=== PATIENT | female | born 1965 | race Caucasian/White ===

== ENCOUNTER 2016-05-29 13:38 | Inpatient (IN) | payer MEDICARE, OTHER ==
[~2016-05-29 13:38] MED LIST: ABILIFY10 M1 PO; BUSPIRONE HCL30 M1 PO; CHANTIX0.5 MG/TAB PO; COZAAR25 M1 PO; DEPAKOTE500 M1 PO; FIORICET 50-301 EAC1 PO; KLONOPIN0.5 M1 PO; LASIX40 M1 PO; LEVOTHYROXINE100 MC1 PO; LEXAPRO20 M2 PO; LYRICA150 MG/CAP PO; MELOXICAM15 M1 PO; METOPROLOL SUCC50 M1 PO; NORVASC2.5 M1 PO; OMEPRAZOLE20 M3 PO; PERCOCET 7.5-31 EAC1 PO; POTASSIUM CHLO10 ME2 PO; PRAVASTATIN SOD80 M1 PO; PROAIR HFA8.5 GM INH; ULTRAM50 M1 PO; VITAMIN D3400 UNI5 PO; ZOFRAN ODT8 MG PO; ZOLPIDEM TART12.5 M2 PO
[2016-05-29 16:11] LABS: ANION GAP 12 mmol/L (0-20); BLOOD UREA NITROGEN 14 mg/dl (6-24); CALCIUM 8.4 mg/dl (8.5-10.5); CARBON DIOXIDE-VENOUS 28 mmol/L (22-32); CHLORIDE 110 mmol/l (96-110); CREATININE 0.56 mg/dl (0.50-1.10); GLUCOSE 131 mg/dL (70-110); SODIUM 146 mmol/L (135-145); eGFR VALUE FOR BLACK >90 mL/Min
[2016-05-30 10:26] LABS: URINE APPEARANCE CLEAR; URINE BILIRUBIN NEGATIVE (NEG); URINE BLOOD NEGATIVE (NEG); URINE COLOR YELLOW; URINE GLUCOSE (UA) NEGATIVE (NEG); URINE KETONE NEGATIVE (NEG); URINE LEUKOCYTE ESTERASE NEGATIVE (NEG); URINE NITRITE NEGATIVE (NEG); URINE PROTEIN NEGATIVE (NEG)
[2016-05-31 09:22] LABS: ANION GAP 15 mmol/L (0-20); BLOOD UREA NITROGEN 9 mg/dl (6-24); CALCIUM 7.8 mg/dl (8.5-10.5); CARBON DIOXIDE-VENOUS 26 mmol/L (22-32); CHLORIDE 104 mmol/l (96-110); CREATININE 0.66 mg/dl (0.50-1.10); GLUCOSE 105 mg/dL (70-110); SODIUM 141 mmol/L (135-145); eGFR VALUE FOR BLACK >90 mL/Min
[2016-05-31 12:11] LABS: URINE BILIRUBIN NEGATIVE (NEG); URINE BLOOD NEGATIVE (NEG); URINE GLUCOSE (UA) NEGATIVE (NEG); URINE KETONE NEGATIVE (NEG); URINE LEUKOCYTE ESTERASE NEGATIVE (NEG); URINE NITRITE NEGATIVE (NEG); URINE PROTEIN NEGATIVE (NEG); URINE SPECIFIC GRAVITY 1.005 (1.003-1.030)
[2016-05-31 12:13] LABS: URINE APPEARANCE CLEAR; URINE COLOR YELLOW
[2016-05-31 14:03] LABS: BASO % 0.1 % (0-2); EOS % 0.1 % (0-7); HCT-HEMATOCRIT 29.1 % (34.0-49.0); HGB-HEMOGLOBIN 9.4 gm/dl (12.0-15.5); IMMATURE GRANULOCYTES ABSOLUTE 0.05 tho/cmm (0-0.03); IMMATURE GRANULOCYTES PERCENT 0.3 % (0-0.3); LYMPH % 17.8 % (20-45); LYMPH ABSOLUTE COUNT 2.8 tho/cmm (0.8-4.5); MCH (MEAN CORPUSCULAR HGB) 31.5 pg (28.0-32.0); MCHC MEAN CORPUSCULAR HGB CONC 32.3 % (32.0-36.0); MCV (MEAN CELL VOLUME) 97.7 fl (82.0-96.0); MEAN PLATELET VOLUME 10.5 cmc (9.4-12.4); MONOCYTE ABSOLUTE COUNT 1.6 tho/cmm (0.0-1.2); NEUTROPHIL ABSOLUTE COUNT 11.4 tho/cmm (1.6-8.0); NEUTROPHIL-AUTOMATED 11.4 tho/cmm (1.6-8.0); NEUTROPHILS % 71.7 % (40-80); PLATELET COUNT 261 tho/cmm (150-450); RED BLOOD COUNT 2.98 mil/cmm (4.00-5.20); RED CELL DISTRIBUTION WIDTH 15.4 % (12.4-16.4); WHITE BLOOD COUNT 15.9 tho/cmm (4.0-10.0)
[2016-05-31 14:18] LABS: ANION GAP 11 mmol/L (0-20); BLOOD UREA NITROGEN 9 mg/dl (6-24); CARBON DIOXIDE-VENOUS 28 mmol/L (22-32); CHLORIDE 104 mmol/l (96-110); CREATININE 0.71 mg/dl (0.50-1.10); GLUCOSE 107 mg/dL (70-110); SODIUM 139 mmol/L (135-145); eGFR VALUE FOR BLACK >90 mL/Min
[2016-05-31 15:31] LABS: PROCALCITONIN 0.55 ng/ml (0.05-0.09)
[2016-05-31 19:28] LABS: ALB/GLOB RATIO 0.6 (0.8-2.0); ALBUMIN 2.2 g/dl (3.5-5.0); ALKALINE PHOSPHATASE 101 U/L (33-138); ALT/SGPT 20 U/L (12-78); ANION GAP 12 mmol/L (0-20); AST/SGOT 36 U/L (10-40); BILIRUBIN,TOTAL 0.9 mg/dl (0-1.5); BLOOD UREA NITROGEN 9 mg/dl (6-24); CALCIUM 7.8 mg/dl (8.5-10.5); CARBON DIOXIDE-VENOUS 29 mmol/L (22-32); CHLORIDE 105 mmol/l (96-110); CREATININE 0.55 mg/dl (0.50-1.10); GLUCOSE 108 mg/dL (70-110); SODIUM 142 mmol/L (135-145); eGFR VALUE FOR BLACK >90 mL/Min
[2016-06-02 06:14] LABS: BASO % 0.1 % (0-2); EOS % 0.3 % (0-7); EOSINOPHIL ABSOLUTE COUNT 0.1 tho/cmm (0.0-0.7); HGB-HEMOGLOBIN 7.5 gm/dl (12.0-15.5); IMMATURE GRANULOCYTES ABSOLUTE 0.09 tho/cmm (0-0.03); IMMATURE GRANULOCYTES PERCENT 0.4 % (0-0.3); LYMPH % 9.1 % (20-45); LYMPH ABSOLUTE COUNT 1.9 tho/cmm (0.8-4.5); MCH (MEAN CORPUSCULAR HGB) 31.1 pg (28.0-32.0); MCHC MEAN CORPUSCULAR HGB CONC 32.3 % (32.0-36.0); MCV (MEAN CELL VOLUME) 96.3 fl (82.0-96.0); MEAN PLATELET VOLUME 10.6 cmc (9.4-12.4); MONO % 6.7 % (0-12); MONOCYTE ABSOLUTE COUNT 1.4 tho/cmm (0.0-1.2); NEUTROPHIL ABSOLUTE COUNT 17.7 tho/cmm (1.6-8.0); NEUTROPHIL-AUTOMATED 17.7 tho/cmm (1.6-8.0); NEUTROPHILS % 83.4 % (40-80); PLATELET COUNT 191 tho/cmm (150-450); RED BLOOD COUNT 2.41 mil/cmm (4.00-5.20); RED CELL DISTRIBUTION WIDTH 14.3 % (12.4-16.4); WHITE BLOOD COUNT 21.2 tho/cmm (4.0-10.0)
[2016-06-02 06:24] LABS: ANION GAP 11 mmol/L (0-20); BLOOD UREA NITROGEN 7 mg/dl (6-24); CALCIUM 7.8 mg/dl (8.5-10.5); CARBON DIOXIDE-VENOUS 27 mmol/L (22-32); CHLORIDE 102 mmol/l (96-110); CREATININE 0.48 mg/dl (0.50-1.10); GLUCOSE 106 mg/dL (70-110); POTASSIUM 3.2 mmol/L (3.7-5.1); SODIUM 137 mmol/L (135-145); eGFR VALUE FOR BLACK >90 mL/Min
[2016-06-02 06:39] LABS: HCT-HEMATOCRIT 23.2 % (34.0-49.0)
[2016-06-02 13:09] LABS: C-REACTIVE PROTEIN 33.3 mg/dl (0-0.9)
[2016-06-02 13:28] LABS: PROCALCITONIN 4.08 ng/ml (0.05-0.09)
[2016-06-03 04:17] LABS: BASO % 0.1 % (0-2); EOS % 1.5 % (0-7); EOSINOPHIL ABSOLUTE COUNT 0.2 tho/cmm (0.0-0.7); IMMATURE GRANULOCYTES ABSOLUTE 0.08 tho/cmm (0-0.03); IMMATURE GRANULOCYTES PERCENT 0.6 % (0-0.3); LYMPH % 10.9 % (20-45); LYMPH ABSOLUTE COUNT 1.5 tho/cmm (0.8-4.5); MCH (MEAN CORPUSCULAR HGB) 30.6 pg (28.0-32.0); MCHC MEAN CORPUSCULAR HGB CONC 32.1 % (32.0-36.0); MCV (MEAN CELL VOLUME) 95.2 fl (82.0-96.0); MEAN PLATELET VOLUME 10.9 cmc (9.4-12.4); MONO % 7.5 % (0-12); MONOCYTE ABSOLUTE COUNT 1.1 tho/cmm (0.0-1.2); NEUTROPHIL ABSOLUTE COUNT 11.2 tho/cmm (1.6-8.0); NEUTROPHIL-AUTOMATED 11.2 tho/cmm (1.6-8.0); NEUTROPHILS % 79.4 % (40-80); PLATELET COUNT 210 tho/cmm (150-450); RED BLOOD COUNT 2.29 mil/cmm (4.00-5.20); RED CELL DISTRIBUTION WIDTH 14.3 % (12.4-16.4); WHITE BLOOD COUNT 14.1 tho/cmm (4.0-10.0)
[2016-06-03 04:21] LABS: HCT-HEMATOCRIT 21.8 % (34.0-49.0)
[2016-06-03 04:22] LABS: ANION GAP 10 mmol/L (0-20); BLOOD UREA NITROGEN 5 mg/dl (6-24); CALCIUM 7.7 mg/dl (8.5-10.5); CARBON DIOXIDE-VENOUS 28 mmol/L (22-32); CHLORIDE 103 mmol/l (96-110); CREATININE 0.49 mg/dl (0.50-1.10); POTASSIUM 3.2 mmol/L (3.7-5.1); SODIUM 138 mmol/L (135-145); eGFR VALUE FOR BLACK >90 mL/Min
[2016-06-03 04:26] LABS: GLUCOSE 176 mg/dL (70-110)
[2016-06-03] MEDS ORDERED: K-TAB ER20 ME1 PO (13:18)
== END 2016-06-03 13:48 | DRG 453 ==
LOC: 5EB 13:38 → ORE 05-30 11:08 → PACU 05-30 19:10 → 5EB 05-30 20:50
PROVIDERS: Family Medicine; Hospitalist; Nurse Practitioner; ADMIT Orthopaedic Surgery Orthopaedic Surgery of the Spine
PROC: 0SG10A0 Fusion of 2 or more Lumbar Vertebral Joints with Interbody Fusion Device, Anterior Approach, Anterior Column, Open Approach (ICD-10-PCS; principal; 2016-05-30)
PROC: 0SG00AJ Fusion of Lumbar Vertebral Joint with Interbody Fusion Device, Posterior Approach, Anterior Column, Open Approach (ICD-10-PCS; 2016-05-30)
PROC: 0QW004Z Revision of Internal Fixation Device in Lumbar Vertebra, Open Approach (ICD-10-PCS; 2016-05-30)
PROC: 01NB0ZZ Release Lumbar Nerve, Open Approach (ICD-10-PCS; 2016-05-30)
PROC: 00NY0ZZ Release Lumbar Spinal Cord, Open Approach (ICD-10-PCS; 2016-05-30)
PROC: 4A11X4G Monitoring of Peripheral Nervous Electrical Activity, Intraoperative, External Approach (ICD-10-PCS; 2016-05-30)
DX: M48.06 Spinal stenosis, lumbar region (principal); A41.9 Sepsis, unspecified organism; M43.16 Spondylolisthesis, lumbar region; R32 Unspecified urinary incontinence; E03.9 Hypothyroidism, unspecified; F41.9 Anxiety disorder, unspecified; J44.9 Chronic obstructive pulmonary disease, unspecified; E66.9 Obesity, unspecified; M51.16 Intervertebral disc disorders with radiculopathy, lumbar region; G89.29 Other chronic pain; E78.5 Hyperlipidemia, unspecified; F31.9 Bipolar disorder, unspecified; K21.9 Gastro-esophageal reflux disease without esophagitis; G47.00 Insomnia, unspecified; R00.0 Tachycardia, unspecified; E87.6 Hypokalemia; E28.2 Polycystic ovarian syndrome; Z91.19 Patient's noncompliance with other medical treatment and regimen; Z87.891 Personal history of nicotine dependence; Z68.38 Body mass index [BMI] 38.0-38.9, adult; Z23 Encounter for immunization
CPT/HCPCS: A4306; C1713; C1751; G0008; J0690; J0696; J1170; J2175; J2250; J2370; J2543; J3010; J3370; J7030; J7040